=== PATIENT | male | born 1955 | race Caucasian/White ===

== ENCOUNTER → 2017-07-11 | Outpatient (CLI) | payer MEDICAID | LOC: BMCIMAGING 10:07 | PROVIDERS: ATTEND Internal Medicine Rheumatology | DX: M79.644 Pain in right finger(s) (principal); M79.645 Pain in left finger(s) ==

== ENCOUNTER 2017-09-15 19:17 | Emergency (ER) | payer MEDICAID ==
[2017-09-15 19:34] VITALS: BP 135/93; PULSE 73; RESP 16; TEMP 97.9; O2SAT 96
[2017-09-15] MEDS ORDERED: CEPHALEXIN 500 MG CAP PO ONE (19:43)
--- NOTE | 2017-09-15 19:44 | EDPHY ---
H & P Time Seen by Provider: 09/15/17 19:33 HPI/ROS: This patient complains of redness at the site of a basal cell carcinoma removal from his upper back approximately 11 days ago by [facility]. His was been changing the dressings noted some redness and warmth to touch that concerns her for potential infection. She also noted some"whiteness"to the skin at the site. They have been applying Vaseline and keeping the wound covered most of the time. He reports mild discomfort at the site. Came in by private vehicle for evaluation of the symptoms. He notes no other exacerbating factors. ROS: Constitutional: No fevers. Integumentary: No drainage from the wound. Neuro: No numbness or tingling 5 point ROS is otherwise negative Smoking Status: Former smoker Physical Exam: Physical Exam Vital signs are normal. General: No acute distress Lungs: No respiratory distress. Cardiac: Brisk capillary refill is intact throughout. Skin: There is a 3 cm incision to the left upper back with Prolene sutures in place with erythema 1 cm in width extending around the wound with associated warmth to touch and pale appearing nonviable skin at the suture lines. No fluctuance. No drainage with massage the area. Neuro: Alert and oriented x3 with no sensorimotor deficits. Initial differential diagnosis: Local wound infection, contact dermatitis Constitutional: Initial Vital Signs Temperature (C) 36.6 C 09/15/17 19:31 Heart Rate 73 09/15/17 19:31 Respiratory Rate 16 09/15/17 19:31 Blood Pressure 135/93 H 09/15/17 19:31 O2 Sat (%) 96 09/15/17 19:31 O2 Delivery Mode Room Air Allergies/Adverse Reactions: melon Allergy (Intermediate, Verified 09/15/17 19:35) Swelling/neck,face,throat tree nut Allergy (Intermediate, Verified 09/15/17 19:35) Swelling/neck,face,throat Home Medications: Medication Instructions Recorded Albuterol Hfa Anes Only 09/15/17 Aspirin 81mg (*) 09/15/17 Cephalexin [Keflex (*)] 500 mg PO TID #21 cap 09/15/17 Humira 09/15/17 Hydroxyzine HCl 09/15/17 Lyrica 09/15/17 Repatha Syringe 09/15/17 Tramadol HCl 09/15/17 Trazodone HCl 09/15/17 MDM/Departure - MDM Medications Given: Discontinued Medications Cephalexin HCl (Keflex) 500 mg PO EDNOW ONE PRN Reason: Protocol Stop: 09/15/17 19:44 Last Admin: 09/15/17 20:06 Dose: 500 mg ED Course/Re-evaluation: Wound scrubbed by our tech with baby shampoo and water. Encouraged the patient to allow some air to get to the wound for part of the day each day. He is treated with 1st dose of Keflex. Will continue on Keflex for likely superficial wound infection. He will follow up with his whipper. He understands the need to return emergency department should he develop any significant worsening despite treatment plan. - Depart Disposition: Home, Routine, Self-Care Clinical Impression: Superficial postoperative wound infection Qualifiers: Encounter type: initial encounter Qualified Code(s): T81.4XXA - Infection following a procedure, initial encounter Condition: Good Instructions: Wound Infection (DC) Additional Instructions: Diagnosis: Superficial wound infection Plan: Clean the wound daily with warm soapy water Keep the wound open to air for part of the day Keflex antibiotic as prescribed Warm packs 2 times a day for 20-30 minutes at a time Follow up with her whipper on Monday Return emergency department for any significant worsening of symptoms, onset of fever or other concerns. Prescriptions: Cephalexin [Keflex (*)] 500 mg PO TID #21 cap Referrals: Simon Conti MD [Primary Care Provider] - As per Instructions
== END 2017-09-15 20:15 | disposition home or self-care (01) ==
LOC: CED 19:17
DX: T81.4XXA Infection following a procedure, initial encounter (principal); Z79.82 Long term (current) use of aspirin; Z87.891 Personal history of nicotine dependence; Y82.8 Other medical devices associated with adverse incidents

== ENCOUNTER → 2017-10-04 | Outpatient (CLI) | payer MEDICAID | LOC: CIMAGING 09:39 | DX: I65.23 Occlusion and stenosis of bilateral carotid arteries (principal) | CPT/HCPCS: 93880-PO ==

== ENCOUNTER → 2018-11-19 | Outpatient (CLI) | payer OTHER | LOC: BHFA 08:30 | PROVIDERS: ATTEND Internal Medicine Cardiovascular Disease | DX: R06.02 Shortness of breath (principal); I25.10 Atherosclerotic heart disease of native coronary artery without angina pectoris | CPT/HCPCS: 78452; 93017; A9500 ==